=== PATIENT | female | born 1990 | race Caucasian/White ===

== ENCOUNTER 2020-08-10 13:19 | Emergency (ER) | payer OTHER, SELFPAY ==
[2020-08-10 13:21] VITALS: BP 136/83; PULSE 103; RESP 16; TEMP 37.4; O2SAT 98; BMI 21.2
--- NOTE | 2020-08-10 13:43 | HMH.EDGENADL ---
ED Disposition Clinical Impression: Infected dental caries Disposition: Home, Self-Care Condition on Discharge: Fair Instructions: DI for Tooth Abscess Additional Instructions: Clindamycin as prescribed. Gould as needed for pain. Ibuprofen 600 mg every 6-8 hours. Additional instructions for DENTAL PROBLEMS: See a dentist as soon as possible for further evaluation. Return immediately if you have an uncontrollable fever greater than 102 degrees, difficulty breathing or shortness of breath, persistent vomiting, or inability to swallow. Additional instructions for CONTROLLED SUBSTANCES: You have been prescribed a medication that is a controlled substance. Controlled substances include pain medications known as opiates and sedative nerve medications known as benzodiazepines. Tramadol, fioricet, and gabapentin are also controlled substances. Some common opiates include: Codeine (such as Tylenol #3) Hydrocodone (Vicodin, Lortab, Lorcet, Gould) Oxycodone (Percocet, Percodan, Oxycodone, Oxy IR) Some common benzodiazepines include: Diazepam (Valium) Lorazepam (Ativan) Alprazolam (Xanax) Clonazepam (Klonopin) Oxazepam (Serax) All of these controlled substances are highly addictive and frequently abused. Misuse can and frequently does lead to addiction as well as overdose and . Medication should be stored in a locked cabinet or other secure storage unit. Do not store the medication in a motor vehicle. Short term supplies, 3 days or less, are prescribed because of the highly addictive nature of the medication. Any of the controlled substance medication NOT taken should be disposed of properly and NOT SAVED. The recommended method of disposing of unused medications is: Place the medicines in a sealable plastic bag. If the medicine is a solid, crush it or add water to dissolve it. Add something undesirable (cat litter, coffee grounds, etc.) Dispose of sealed bag in household trash Do not flush or pour unused medicines down a sink or drain. Controlled substances should not be shared, given away or sold. Because of the addictive nature and frequent abuse, these medications are sometimes stolen. These medications should be kept in a safe place where they cannot be stolen. Do not keep them in your car or purse. Lost or stolen prescriptions for controlled substances WILL NOT BE REFILLED in this emergency department, regardless of whether a police report was filed. Prescriptions: Hydrocod/Acet 5/325 mg [Gould 5/325mg tablet] 1 tab PO Q6HP PRN #10 tab PRN Reason: Pain Transmission Status: Sent to [facility] #[id number] clindamycin HCL [Clindamycin HCl] 300 mg PO QID #40 cap Transmission Status: Pending to [facility] #[id number] Referrals: PCP,No [Primary Care Provider] - - Critical Care Critical Care Time: No Attestation: On 08/10/20, the high probability of a clinically significant, sudden or life threatening deterioration of the following system(s) required my full and direct attention, intervention and personal management. The time I documented below is in addition to time spent performing reported procedures but includes the following listed in this critical care notation. Medical Decision Making - Maynor Inquiry Pt receiving controlled substance: Yes Maynor was queried for this patient: Yes Risks and benefits of using a controlled substance: were discussed with pt by me Vital Signs: 08/10/20 13:21 Temperature 99.3 F Temperature Source Oral Pulse Rate [Radial] 103 H Respiratory Rate 16 Blood Pressure [Right Arm] 136/83 Blood Pressure Mean [Right Arm] 100 Blood Pressure Position [Right Arm] Sitting 02 Sat by Pulse Oximetry 98 Oxygen Delivery Method Room Air - Lab Data Lab Results 08/10/20 13:57: WBC 11.1 H, RBC 4.81, Hgb 13.2, Hct 42.9, MCV 89.2, MCH 27.4, MCHC 30.8 L, RDW 14.5, Plt Count 374, MPV 7.9, Neut % (Auto) 64.0, Lymph % (Auto) 22.8, [place] % (Auto) 10.6 H,
--- NOTE | 2020-08-10 14:12 | PC.NURSE ---
PT CONTINUES TO C/O PAIN STATES NO RELIEF WITH MEDS GIVEN. PT STATES SHE IS OK TO GET MORPHINE
[2020-08-10 14:39] LABS: Basophils # 0.1 K/mm3 (0-0.2); Basophils % 0.7 % (0.1-2.0); Chloride 101 mmol/L (98-107); Eosinophils # 0.2 K/mm3 (0.0-0.4); Hematocrit 42.9 % (37.0-47.0); Hemoglobin 13.2 g/dL (12.2-16.2); Lymphocytes # 2.5 K/mm3 (0.7-4.5); Lymphocytes % 22.8 % (10-50); Mean Corpuscular HGB Conc 30.8 g/dL (31.8-35.4); Mean Corpuscular Hemoglobin 27.4 pg (27.0-31.2); Mean Corpuscular Volume 89.2 fl (81-99); Mean Platelet Volume 7.9 fl (7.4-10.4); Monocytes # 1.2 K/mm3 (0.1-1.0); Monocytes % 10.6 % (1.7-9.3); Neutrophils # 7.1 K/mm3 (1.8-7.8); Platelet Count 374 K/mm3 (142-424); Potassium 4.5 mmoL/L (3.5-5.1); Red Blood Count 4.81 M/mm3 (4.20-5.40); Red Cell Distribution Width 14.5 % (11.5-17.5); Sodium 140 mmol/L (136-145); White Blood Count 11.1 K/mm3 (4.8-10.8)
[2020-08-10 14:42] LABS: Blood Urea Nitrogen 6 mg/dl (7-17); Creatinine Clearance Estimated 116 mL/min (50-200); Estimated Glomerular Filt Rate 119 ml/min (>60); GFR (African American) 144 ML/MIN (>60)
[2020-08-10 14:43] LABS: Anion Gap 10.5 mEq/L (5-15); Calcium 9.9 mg/dl (8.4-10.2); Carbon Dioxide 33 mmol/L (22.0-30.0); Glucose 111 mg/dl (74-100)
[2020-08-10 15:25] VITALS: BP 124/74; PULSE 65; RESP 16; TEMP 36.8; O2SAT 98
== END 2020-08-10 15:26 | disposition home or self-care (01) ==
PROVIDERS: Emergency Provider Emergency Medicine
DX: K02.9 Dental caries, unspecified (principal); K04.7 Periapical abscess without sinus
CPT/HCPCS: 80048; 85025; 96365; 96375; 99282

== ENCOUNTER → 2020-12-10 15:54 | Outpatient (CLI) | payer OTHER, SELFPAY ==
[2020-12-10 16:43] LABS: Alanine Aminotransferase 101 U/L (12-78); Albumin Level 4.5 g/dl (3.5-5.0); Alkaline Phosphatase 106 U/L (38-126); Aspartate Amino Transferase 56 U/L (14-36); Bilirubin,Direct 0.4 mg/dl (0.0-0.4); Bilirubin,Indirect 0.1 mg/dL (0.0-0.9); Bilirubin,Total 0.5 mg/dl (0.2-1.3); Bilirubin,Unconjugated 0.1 mg/dL (0.0-1.1); Total Protein,Serum 8.3 g/dl (6.3-8.2)
[2020-12-10 16:48] LABS: Basophils % 0.2 % (0.1-2.0); Eosinophils # 0.2 K/mm3 (0.0-0.4); Eosinophils % 1.5 % (0.1-12.0); Hematocrit 40.3 % (37.0-47.0); Hemoglobin 13.3 g/dL (12.2-16.2); Lymphocytes # 2.1 K/mm3 (0.7-4.5); Lymphocytes % 18.4 % (10-50); Mean Corpuscular Hemoglobin 28.5 pg (27.0-31.2); Mean Corpuscular Volume 86.4 fl (81-99); Mean Platelet Volume 7.5 fl (7.4-10.4); Monocytes # 0.7 K/mm3 (0.1-1.0); Monocytes % 5.8 % (1.7-9.3); Neutrophils # 8.6 K/mm3 (1.8-7.8); Neutrophils % 74.1 % (37.0-80.0); Platelet Count 359 K/mm3 (142-424); Red Blood Count 4.66 M/mm3 (4.20-5.40); Red Cell Distribution Width 14.3 % (11.5-17.5); White Blood Count 11.7 K/mm3 (4.8-10.8)
[2020-12-12 06:44] LABS: HIV Screen 4th Generation wRfx Non Reactive (Non Reactive)
[2020-12-12 09:48] LABS: HSV 1 IgG, Type Spec >62.20 index (0.00-0.90); HSV 2 IgG, Type Spec <0.91 index (0.00-0.90); Rubella Antibodies, IgG 1.31 index (Immune >0.99)
[2020-12-12 10:53] LABS: Hepatitis B Surface Antigen Negative (Negative); Hepatitis C Antibody >11.0 s/co ratio (0.0-0.9)
[2020-12-12 12:19] LABS: Rapid Plasma Reagin Ab Titer Non Reactive (NonRea<1:1)
== END ==
PROVIDERS: Visit Provider Nurse Practitioner Obstetrics & Gynecology
DX: Z34.90 Encounter for supervision of normal pregnancy, unspecified, unspecified trimester (principal); B19.20 Unspecified viral hepatitis C without hepatic coma; F19.10 Other psychoactive substance abuse, uncomplicated; O99.320 Drug use complicating pregnancy, unspecified trimester
CPT/HCPCS: 36415; 80076; 85025; 86592; 86695; 86703; 86762; 86790; 86850; 87340; 87380; 87522; 87902; G0432

== ENCOUNTER → 2020-12-18 13:37 | Outpatient (CLI) | payer OTHER, SELFPAY ==
--- NOTE | 2020-12-18 13:42 | US_ITS ---
PROCEDURE: US OB <= 14 WEEKS FETUS CLINICAL INDICATION: US before 14 wk for DATES and confirmation A Aleksandra mcfarland the B at COMPARISON: No exams were available for comparison FINDINGS: An intrauterine gestational sac is present with a pole with a crown-rump length of 3.29cm correlating to gestational age of 10weeks 2days. heart tones are present with an FHR of 167bpm. Yolk sac is noted. Nuchal translucency is slightly prominent at 3 mm. There is also edema of the abdominal wall. These findings are worrisome for abnormality. High risk assessment suggested. IMPRESSION: Live IUP at 10 weeks 2 days. Nuchal translucency is slightly prominent and there is also edema of the abdominal wall. High-risk assessment suggested. Estimated due date by Ultrasound is 07/14/2021 Dictated by: Patrick López MD 12/18/2020 14:54 Patrick López MD in [facility] 12/18/2020 14:54
== END ==
PROVIDERS: Visit Provider Nurse Practitioner Obstetrics & Gynecology
DX: O26.841 Uterine size-date discrepancy, first trimester (principal)
CPT/HCPCS: 76801

== ENCOUNTER → 2021-01-07 15:09 | Outpatient (CLI) | payer OTHER, SELFPAY | PROVIDERS: Visit Provider Nurse Practitioner Obstetrics & Gynecology | DX: Z34.91 Encounter for supervision of normal pregnancy, unspecified, first trimester (principal); Z3A.12 12 weeks gestation of pregnancy | CPT/HCPCS: 36415 ==

== ENCOUNTER → 2021-02-23 13:00 | Outpatient (CLI) | payer OTHER, SELFPAY ==
--- NOTE | 2021-02-23 13:00 | US_ITS ---
PROCEDURE: US OB /MATERNAL DETAIL CLINICAL INDICATION: 20 wk + Anantomy Scan-Complete COMPARISON: US US OB <= 14 WEEKS FETUS from 12/18/2020 FINDINGS: There is a single live intrauterine gestation which is in cephalic presentation. heart and body motion noted. The placenta is anterior in implantation and grade 1. No previa or abruption. The cervix is closed measuring 4 cm. Complete survey performed and was unremarkable on the submitted images as in PACS. No discrete anomalies identified on survey imaging by technologist. Active fetus. Three-vessel cord with satisfactory umbilical cord insertion. 4- chamber heart noted. Survey of brain & ventricles Unremarkable. Face and neck survey unremarkable. Diaphragm and chest views unremarkable. Abdomen: Both kidneys noted and unremarkable. Stomach noted and satisfactory. Spine: Survey of the spine satisfactory with no anomalies identified nor imaged. Both arms and legs noted. Amniotic Fluid: Adequate. Maternal adnexa: No significant findings. Measurements: Average ultrasound age 19weeks 2days. Gestational Age 19weeks 2days Estimated due date by ultrasound age 0207/18/2021. Estimated weight 278g BPD = 19weeks 4days OFD = 19weeks 4days HC = 18weeks 6days AC = 19weeks 1day FL = 19weeks 3days Growth Percentile= 14% Heart Rate = 142bpm Cerebellum = 19weeks 2days Humerus = 19weeks 5days HC/AC is 1.17 CI is 0.8 FL/BPD is 0.67 FL/AC is 0.22 IMPRESSION: Live IUP in cephalic presentation. Average ultrasound age is 19 weeks 2 days. No obvious anomalies. Please see above for detail. Dictated by: Patrick López MD 02/24/2021 09:05 Patrick López MD in [facility] 02/24/2021 09:05
== END ==
PROVIDERS: PCP Nurse Practitioner Obstetrics & Gynecology; Visit Provider Nurse Practitioner Obstetrics & Gynecology
DX: Z36.0 Encounter for antenatal screening for chromosomal anomalies (principal)
CPT/HCPCS: 76811

== ENCOUNTER → 2021-06-08 10:43 | Outpatient (CLI) | payer OTHER, SELFPAY ==
--- NOTE | 2021-06-08 10:44 | US_ITS ---
PROCEDURE: US OB FOLLOW UP CLINICAL INDICATION: SGA TECHNIQUE: FINDINGS: The following parameters are obtained: Average ultrasound age is Average 32weeks 4days Estimated due date by ultrasound is 07/30/2021. Estimated weight is 1,938g. This is 3 percentile. The fetus is in cephalic presentation. The placenta is anterior and grade 2 BPD: 32weeks 5days OFD: 32weeks 5days HC: 29.6cm AC: 28.5cm FL: 6cm heart rate: 116bpm bpm. HC/AC: 1.04 Cephalic index: 0.8 FL/BPD: 0.73 FL/AC: 0.21 Amniotic fluid index: 13.88cm Qualitative AFV: 2 breathing movements: 2 Gross body movements: 2 Tone: 2 Biophysical profile score: 8 IMPRESSION: Live IUP in cephalic presentation with an average ultrasound age of 32 weeks 4 days. Estimated weight is 1938 g which is 3 percentile indicating IUGR. JASE is normal at 14 cm. Biophysical profile is 8 of 8. Dictated by: Patrick López MD 06/08/2021 15:12 Patrick López MD in [facility] 06/08/2021 15:12
== END ==
PROVIDERS: PCP Nurse Practitioner Obstetrics & Gynecology; Visit Provider Nurse Practitioner Obstetrics & Gynecology
DX: O36.5990 Maternal care for other known or suspected poor fetal growth, unspecified trimester, not applicable or unspecified (principal)
CPT/HCPCS: 76816; 76819

== ENCOUNTER → 2021-06-23 16:31 | Outpatient (CLI) | payer OTHER, SELFPAY | PROVIDERS: Visit Provider Nurse Practitioner Obstetrics & Gynecology | DX: Z34.90 Encounter for supervision of normal pregnancy, unspecified, unspecified trimester (principal) | CPT/HCPCS: 86403 ==

== ENCOUNTER 2021-06-27 06:11 | Outpatient (CLI) | payer OTHER, SELFPAY ==
[2021-06-27 06:43] VITALS: BMI 27.6
[2021-06-27 06:50] VITALS: BP 113/58; PULSE 93; RESP 19; TEMP 36.8; O2SAT 97; BMI 27.6
[2021-06-27 07:09] LABS: Microscopic, Urine URINE MICROSCOPIC (MICROSCOPIC)
[2021-06-27 07:11] LABS: Appearance,Urine CLEAR (Clear); Bilirubin,Urine Negative (Negative); Blood, Urine Negative (Negative); Color,Urine YELLOW (Yellow); Glucose,Urine (UA) Negative (Negative); Ketones,Urine Negative (Negative); Leukocyte Esterase,Urine Negative (Negative); Nitrate,Urine Negative (Negative); PH,Urine 6.5 (5.0-8.5); Protein,Urine Negative (Negative); Specific Gravity, Urine <= 1.005 (1.005-1.030); Urobilinogen,Urine 0.2 EU/dl (0.2)
[2021-06-27 07:29] LABS: Bacteria,Urine Trace /lpf
[2021-06-27 07:54] LABS: Benzodiazepines Screen,Urine Negative ng/ml (<200)
[2021-06-27 07:55] LABS: Amphetamine/Metha Screen,Urine Negative ng/ml (<1000); Barbiturates Screen,Urine Negative ng/ml (<200)
[2021-06-27 07:56] LABS: Cannabinoid Screen,Urine Negative ng/ml (<50)
[2021-06-27 07:57] LABS: Cocaine Screen,Urine Negative ng/ml (<300); Methadone Screen,Urine Negative ng/ml (<300)
[2021-06-27 07:58] LABS: Opiate Screen,Urine Negative ng/ml (<300); Phencyclidine Screen,Urine Negative ng/ml (<25)
[2021-06-30 18:54] LABS: Buprenorphine, Urine Negative ng/mL (Cutoff=10)
== END 2021-06-27 07:43 | disposition home or self-care (01) ==
LOC: OBOUT 06:14 → OB 06:14
PROVIDERS: Visit Provider Nurse Practitioner Obstetrics & Gynecology
DX: O60.03 Preterm labor without delivery, third trimester (principal); Z3A.37 37 weeks gestation of pregnancy
CPT/HCPCS: 59025; 80305; 80307; 81001

== ENCOUNTER 2021-07-01 14:02 | Inpatient (IN) | payer OTHER, SELFPAY ==
[2021-07-01] VITALS (8 sets, daily range): BP systolic 107–139; BP diastolic 61–81; PULSE 77–105; RESP 16–18; TEMP 36.4–37.3; O2SAT 95–97; BMI 27.6
[2021-07-01 12:30] LABS: Coronavirus 19, PCR Not Detected (NotDetected); Influenza A, PCR Not Detected (NotDetected); Influenza B, PCR Not Detected (NotDetected)
[2021-07-01 12:30] LABS: Basophils % 0.3 % (0.1-2.0); Eosinophils % 0.1 % (0.1-12.0); Hematocrit 36.3 % (37.0-47.0); Hemoglobin 11.6 g/dL (12.2-16.2); Lymphocytes # 1.1 K/mm3 (0.7-4.5); Lymphocytes % 7.8 % (10-50); Mean Corpuscular Hemoglobin 27.4 pg (27.0-31.2); Mean Corpuscular Volume 85.7 fl (81-99); Mean Platelet Volume 8.1 fl (7.4-10.4); Monocytes # 0.6 K/mm3 (0.1-1.0); Monocytes % 3.8 % (1.7-9.3); Neutrophils # 12.6 K/mm3 (1.8-7.8); Platelet Count 401 K/mm3 (142-424); Red Blood Count 4.24 M/mm3 (4.20-5.40); Red Cell Distribution Width 15.2 % (11.5-17.5); White Blood Count 14.4 K/mm3 (4.8-10.8)
[2021-07-01 13:39] LABS: MANUAL DIFFERENTIAL MANUAL DIFFERENTIAL (MANUAL DIFF)
[2021-07-01 14:02] LABS: Chloride 106 mmol/L (98-107); Potassium 3.9 mmoL/L (3.5-5.1); Sodium 134 mmol/L (136-145)
[2021-07-01 14:04] LABS: Alanine Aminotransferase 27 U/L (12-78); Albumin Level 3.6 g/dl (3.5-5.0); Alkaline Phosphatase 243 U/L (38-126); Aspartate Amino Transferase 29 U/L (14-36); Bilirubin,Total 0.5 mg/dl (0.2-1.3); Blood Urea Nitrogen 5 mg/dl (7-17); Carbon Dioxide 21 mmol/L (22.0-30.0); Creatinine Clearance Estimated 180 mL/min (50-200); Estimated Glomerular Filt Rate 146 ml/min (>60); GFR (African American) 177 ML/MIN (>60); Globulin 3.5 g/dL (1.3-3.2); Total Protein,Serum 7.1 g/dl (6.3-8.2)
[2021-07-01 14:05] LABS: Anion Gap 10.9 mEq/L (5-15); Glucose 98 mg/dl (74-100)
--- NOTE | 2021-07-01 14:06 | HMH.OBAPHP ---
OB - H&P: HPI Antepartum - History of Present Illness Chief complaint: Contractions at 38 weeks. History of present illness: She is a 31-year-old 6 para 4 aborta 1 who was 38+ weeks gestational age. She came in having contractions since this morning. She has had a previous section as well as a . She was scheduled for a repeat section next week. Since she is in active labor and extremely uncomfortable we will go ahead with a repeat section today. She is also known to be small for gestational age and have mild oligohydramnios. We discussed the risks of surgery that includes bleeding, infection, injuries to the bowel and bladder. We discussed the rare risk of DVT. We discussed the need for DVT prophylaxis. All questions were answered and consents were signed. - History of Present Criteria for establishing EDC:: LMP confirmed by 1st trimester US care: limited care Ultrasounds: normal 1st trimester US, normal mid trimester US [facility] History Medical History: Reports:: Hepatitis *Have you ever received a pneumonia vaccine?: No *Have you received a flu vaccine this season?: No Laterality Cases: Bilateral: Tonsillectomy Other Surgeries: Yes: Cholecystectomy, , Tubal Ligation, Other Amputation: No Fractures: No - *Social History Smoking Status: Current every day smoker Tobacco Type: cigarettes Alcohol Intake: never Alcohol Intake Frequency:: other Substance Use Type: heroin, amphetamines, methamphetamine *Occupational Status:: unemployed Housing: other Household Members: other *Travel in the last 8 weeks: None Family Hx:: Cancer, Heart Attack, Diabetes Para: 4 Review of Systems - Review of Systems Review of systems:: pertinent systems reviewed and negative unless documented below Meds Home Medications Medication Instructions Recorded Confirmed Type vits no.126-ferrous fum 1 tab PO DAILY 30 Days #30 tab 12/10/20 06/25/21 Rx 28 mg iron-folic acid 800 mcg tablet ferrous sulfate 325 mg (65 mg 325 mg PO DAILY #30 tab 03/25/21 06/25/21 Rx iron) tablet Allergies Allergy/AdvReac Type Severity Reaction Status Date / Time No Known Allergies Allergy Verified 06/25/21 11:25 OB - H&P: Exam - Physical Exam Vital signs: Temp Pulse Resp BP Pulse Ox 97.6 F 105 H 18 139/78 97 07/01/21 11:30 07/01/21 11:30 07/01/21 11:30 07/01/21 11:30 07/01/21 11:30 - Constitutional no acute distress - Routine HEENT Exam Head: Present: normocephalic Eye: Present: EOMI, PERRL ENT: Present: mucous membranes moist - Routine Neck Exam Present: supple, full ROM - Routine Respiratory Exam Absent: accessory muscle use (good air entry bilaterally), respiratory distress, wheezes, crackles - Routine Cardiovascular Exam Present: RRR. Absent: murmur - Routine Abdominal Exam Present: soft, normoactive bowel sounds. Absent: tenderness, distended, guarding - Routine Rectal Exam Patient deferred: visual exam, digital exam - Routine Exam Patient deferred: external exam, groin exam, perineal exam - Routine Extremities Exam Present: full ROM. Absent: cyanosis, edema - Routine Skin Exam Present: intact. Absent: cyanosis - Routine Neurological Exam Present: alert, oriented X3 - Routine Psychiatric Exam Present: normal affect OB - Results - Labs Labs: Short CBC 07/01/21 Range/Units 12:04 WBC 14.4 H (4.8-10.8) K/mm3 Hgb 11.6 L (12.2-16.2) g/dL Hct 36.3 L (37.0-47.0) % Plt Count 401 (142-424) K/mm3 BMP 07/01/21 12:04 Sodium 134 L Potassium 3.9 Chloride 106 Carbon Dioxide 21 L BUN 5 L Creatinine 0.50 L Glucose 98 Calcium 9.0 Liver Function 07/01/21 Range/Units 12:04 Total Bilirubin 0.5 (0.2-1.3) mg/dl AST 29 (14-36) U/L ALT 27 (12-78) U/L Alkaline Phosphatase 243 H (38-126) U/L Albumin 3.6 (3.5-5.0) g/dl OB - A/P Antepartum (1) Sm
--- NOTE | 2021-07-01 16:22 | HMH.OPNOTE ---
Date of procedure: 07/01/21 Pre-op Diagnosis:: Term , previous section, active labor Post-op Diagnosis:: Term , previous section, active labor Procedure performed:: Repeat lower segment transverse section Surgeon:: Soy Kennedy MD Study Abroad Coordinator(s):: Lavinia Palma LINE MAINTENANCE:: David Gaston Anesthesia: spinal Estimated blood loss (mL): 600 Clinical Note:: She is a 31-year-old 7 para 4 aborta 2 who was 38 weeks gestational age. She came in in active labor. She was scheduled for a next week. As result of that she was offered repeat lower segment transverse section. Operative findings:: She delivered a liveborn male child by section at 330 3 in the afternoon of July 01, 2021. The baby had Apgars of 7 at 1 minute and 9 at 5 minutes. There was thin meconium. Ovaries and tubes appeared normal. Operative note:: She was taken to the operating room where spinal anesthesia was found be adequate. She was prepped and draped in normal sterile fashion in the supine position with a leftward tilt. A Razo catheter was in the bladder. A Pfannenstiel skin incision was made with knife then carried through to the underlying layer of fascia with cautery. The fascia was opened in the midline with cautery and extended laterally using Lopez scissors. Hudson clamps were applied to the superior aspect of the fascial incision which was tented up and the underlying rectus muscles dissected off using cautery. The Gregory clamps were then applied to the inferior aspect of the fascial incision which in a similar fashion was tented up and the underlying rectus muscles dissected off using cautery. The rectus muscles were then in the midline, the peritoneum identified, and entered sharply with Metzenbaum scissors. This incision was then extended superiorly and inferiorly with cautery. We had good visualization of the bladder inferiorly. The bladder peritoneum was then opened in the midline and extended laterally using Metzenbaum scissors. A bladder flap was created digitally. Transverse incision was made through the uterine muscle to the amnion. This incision was then extended laterally using fingers traction. The amnion was entered sharply with knife. There was thin meconium in the amniotic fluid. The 's head was then delivered atraumatically. This was followed by the anterior shoulder and the rest of the infant's body atraumatically. The oropharynx and nasopharynx were DeLee suctioned. The was vigorous and we allowed the cord to continue to pulsate for approximately 1 minute. Then handed off to Dr. Carrasquillo who assigned Apgars of 7 at 1 minute and 9 at 5 minutes. We then obtained cord blood. Using gentle traction on the cord and countertraction on the fundus I was able to easily deliver the placenta intact. It had a normal three-vessel cord. The uterus was then cleared of clots and debris . The uterine incision was then closed using running 0 Vicryl suture in a locked fashion. A second layer of the same suture was used to imbricate the first layer. The bladder peritoneum was then closed using running 2-0 Vicryl suture in a locked fashion. The gutters and cul-de-sac were then cleared of clots and debris . Once again hemostasis was assured. The peritoneum was grasped with Laureen clamps and closed using running 2-0 Vicryl suture. The rectus muscles were then reapproximated using running 0 Vicryl suture. The fascia was closed using running #1 Vicryl suture. The subcutaneous tissues were then irrigated with warm water followed by closure Kelsey's fascia using running 2-0 Monocryl suture. The skin was closed with running subcuticular 4-0 Monocryl strata fix suture. I then cleaned the skin with Hibiclens. Sterile dressings were applied. We then performed a bilateral tap block under ultrasound guidance. She tolerated the procedure well and was taken to the recovery room in [facility]
--- NOTE | 2021-07-01 16:34 | P.PN_ITS ---
[facility] Anesthesia Checklist - Patient Identification Patient Identification: Arm Band - Structural Data Admitted From: Inpatient Planned Operative Procedure/s: Repeat C/s Consent for Planned Operative Procedure(s) Verified: Yes Verified Documents: Surgical Consent, History and Physical - NPO Status Verified Time NPO: 00:00 - Additional verifications Anesthesia Reactions: No - Airway Assessment C-Spine Mobility Assessed: Yes TMJ Mobility Assessed: Yes Dentition: Good Dentition - Neurological Assessment Level of Consciousness: Awake, Alert - Anesthesia Plan Anesthesia Risk discussed: Yes Anesthesia Plan: Verified ASA Class: II Anesthesia Type: Spinal (with Bilateral TAP block) [facility] History I have reviewed the patient's past medical history: Yes Medical History: Reports:: Hepatitis *Have you ever received a pneumonia vaccine?: No *Have you received a flu vaccine this season?: No Anesthesia experience/problems:: nac Laterality Cases: Bilateral: Tonsillectomy Other Surgeries: Yes: Cholecystectomy, , Tubal Ligation, Other Amputation: No Fractures: No - *Social History Smoking Status: Current every day smoker Tobacco Type: cigarettes Alcohol Intake: never Alcohol Intake Frequency:: other Substance Use Type: heroin, amphetamines, methamphetamine *Occupational Status:: unemployed Housing: other Household Members: other *Travel in the last 8 weeks: None Family Hx:: Cancer, Heart Attack, Diabetes Para: 4
--- NOTE | 2021-07-01 16:35 | P.PN_ITS ---
[facility] Anesthesia Record Part I Intake, IV Amount: 2,000 Estimated blood loss (mL): 600 Urine output (mL): 400 Blood Pressure: 124/68 SaO2: 95 Pulse Rate: 88 Respiratory Rate: 16 Temperature: 98.4 F Patient is:: Awake, Stable Stable to PACU at:: 16:20
[2021-07-01 16:51] LABS: Microscopic, Urine URINE MICROSCOPIC (MICROSCOPIC)
[2021-07-01 18:06] LABS: Microscopic,Cath URINE MICROSCOPIC (MICROSCOPIC)
[2021-07-01 19:05] LABS: Appearance,Urine/Cath CLEAR (Clear); Bilirubin,Cath Negative (Negative); Blood, Urine/Cath Negative (Negative); Color,Urine/Cath YELLOW (Yellow); Glucose,Urine/Cath (UA) Negative (Negative); Ketones,Urine/Cath Negative (Negative); Leukocyte Esterase,Cath Negative (Negative); Nitrate,Cath Negative (Negative); PH,Urine/Cath 5.5 (5.0-8.5); Protein,Urine/Cath Negative (Negative); Specific Gravity, Urine/Cath <= 1.005 (1.005-1.030); Urobilinogen,Cath 0.2 EU/dl (0.2)
[2021-07-01 19:08] LABS: Appearance,Urine CLEAR (Clear); Bilirubin,Urine Negative (Negative); Blood, Urine Negative (Negative); Color,Urine YELLOW (Yellow); Glucose,Urine (UA) Negative (Negative); Ketones,Urine Negative (Negative); Leukocyte Esterase,Urine Negative (Negative); Nitrate,Urine Negative (Negative); PH,Urine 6.5 (5.0-8.5); Protein,Urine Negative (Negative); Urobilinogen,Urine 0.2 EU/dl (0.2)
[2021-07-01 19:22] LABS: Bacteria,Urine Trace /lpf; RBC,Urine Occasional #/hpf (0-3); Squamous Epithelial Cell,Urine Occasional #/hpf (0-5)
[2021-07-01 19:23] LABS: Bacteria,Urine/Cath TRACE /lpf
[2021-07-01 19:24] LABS: Amphetamine/Metha Screen,Urine Negative ng/ml (<1000)
[2021-07-01 19:25] LABS: Barbiturates Screen,Urine Negative ng/ml (<200); Benzodiazepines Screen,Urine Negative ng/ml (<200)
[2021-07-01 19:26] LABS: Cannabinoid Screen,Urine Negative ng/ml (<50)
[2021-07-01 19:27] LABS: Cocaine Screen,Urine Negative ng/ml (<300); Methadone Screen,Urine Negative ng/ml (<300)
[2021-07-01 19:28] LABS: Opiate Screen,Urine Negative ng/ml (<300)
[2021-07-01 19:29] LABS: Phencyclidine Screen,Urine Negative ng/ml (<25)
[2021-07-01 19:56] LABS: Lymphocytes % 10 % (10-50); Monocytes % 3 % (2-9); Neutrophils % 87 % (42-76); Platelet Estimate Normal; Total Cells Counted 100
[2021-07-01 19:57] LABS: Spherocytes 1+
[2021-07-02 03:29] VITALS: BP 111/62; PULSE 71; RESP 17; TEMP 37; O2SAT 99
[2021-07-02 07:57] LABS: Hematocrit 31.5 % (37.0-47.0)
[2021-07-02 08:05] VITALS: BP 115/67; PULSE 81; TEMP 36.6
--- NOTE | 2021-07-02 08:05 | P.PN_ITS ---
[facility] Anesthesia Record Part II Discharge Time: 16:50 Destination: Obstetric PACU nurse assessment reviewed?: Yes Patient Condition:: Good Anesthesia Complications:: None Swallowing reflex intact?: Yes Cyanosis?: No Blood Pressure: 115/67 Pulse Rate: 81 Temperature: 98 F Mental Status: Alert & Oriented Pain level:: 0 Nausea and/or vomitting:: None Intake, IV Amount: 0
--- NOTE | 2021-07-02 08:35 | HMH.OBDCSM ---
General - General Admission date:: 07/01/21 Discharge date: 07/02/21 HPI - History of Present Illness History of present illness: She is a 31-year-old 7 para 4 aborta 2 who was 38+ weeks gestational age. She was scheduled for a repeat next week. She came in in active labor and as result of that we took her for a repeat lower segment transverse section. She also admits to recently using IV heroin. She has hepatitis C. She had been taking Subutex and stopped taking this. Hospital Course Hospital Course: She underwent a repeat lower segment transverse section and delivered a liveborn male child at 3:33 PM in the afternoon of July 01, 2021. Baby had Apgars of 7 at 1 minute and 9 at 5 minutes. He weighed 6 pounds 1 ounces. He was 17-1/4 inches long. The baby had some breathing difficulty and it did have meconium at the time of its delivery. The baby has been transferred to . Patient would like to be discharged today. She says she wants to go to rehab. Blood counts are normal. She has a positive blood, she is rubella immune and was group B streptococcus negative. She will be discharged home to follow-up with me in approximately 2 weeks time. She was given a prescription for Percocet 5/325 number 12 tablets. She was given the usual instructions with respect to limiting her activity, driving and sexual activity. She was given instructions with respect to wound care. Her condition on discharge is stable and improved. Rhogam Administration: Not Indicated Objective Vital signs: Temp Pulse Resp BP Pulse Ox 98 F 81 17 115/67 99 07/02/21 08:05 07/02/21 08:05 07/02/21 03:29 07/02/21 08:05 07/02/21 03:29 no acute distress - *Routine HEENT Exam Head: Present: normocephalic Eye: Present: EOMI, PERRL ENT: Present: mucous membranes moist Results Labs on day of discharge: Labs from last 24 hours 07/02/21 07/01/21 07/01/21 07:01 15:15 14:00 WBC RBC Hgb 10.0 L D Hct 31.5 L MCV MCH MCHC RDW Plt Count MPV Neut % (Auto) Lymph % (Auto) [place] % (Auto) Eos % (Auto) Baso % (Auto) Neut # (Auto) Lymph # (Auto) [place] # (Auto) Eos # (Auto) Baso # (Auto) Total Counted Neutrophils % (Manual) Lymphocytes % (Manual) Monocytes % (Manual) Platelet Estimate Spherocytes Sodium Potassium Chloride Carbon Dioxide Anion Gap BUN Creatinine Estimated Creat Clear Estimated GFR Est GFR ( Amer) Glucose Calcium Total Bilirubin AST ALT Alkaline Phosphatase Total Protein Albumin Globulin Albumin/Globulin Ratio Urine Color Yellow Urine Appearance Clear Urine pH 5.5 Ur Specific [place] <= 1.005 Urine Protein Negative Urine Glucose (UA) Negative Urine Ketones Negative Urine Blood Negative Urine Nitrate Negative Urine Bilirubin Negative Urine Urobilinogen 0.2 Ur Leukocyte Esterase Negative Urine RBC None Urine WBC 3-5 Ur Squamous Epith Cells 3-5 Urine Bacteria Trace Urine Opiates Screen Negative Urine Methadone Screen Negative Ur Barbituates Screen Negative Ur Phencyclidine Scrn Negative Ur Amphetamines Screen Negative U Benzodiazepines Scrn Negative Urine Cocaine Screen Negative U Marijuana (THC) Screen Negative SARS-CoV-2 (PCR) Influenza A Untype (PCR) Influenza Type B (PCR) Blood Type Antibody Screen 07/01/21 07/01/21 07/01/21 14:00 12:08 12:04 WBC RBC Hgb Hct MCV MCH MCHC RDW Plt Count MPV Neut % (Auto) Lymph % (Auto) [place] % (Auto) Eos % (Auto) Baso % (Auto) Neut # (Auto) Lymph # (Auto) [place] # (Auto) Eos # (Auto) Baso # (Auto) Total Counted Neutrophils % (Manual) Lymphocytes % (Manual) Monocytes % (Manual) Platelet Estim
--- NOTE | 2021-07-02 10:28 | SW/DCPLANNER ---
Addendum entered by Mari Solano 07/13/21 11:04: CALLED [facility]ENTRAL INTAKE WITH CORD RESULTS.. INFANTS CORD SCREEN WAS POSITIVE FOR FENTANYL, GABAPENTIN.. INFORMED THEM OF THIS ON THE ID # [id number]. Original Note: RECEIVED REFERRAL FOR THIS PATIENT STATING DRUG USE IN ... PATIENT PRESENTED INTO THE HOSPITAL YESTERDAY FOR A . PATIENT STATED TO NURSING STAFF SHE HAD USED HEROIN 2 DAYS BEFORE PATIENT CAME IN FOR DELIVERY.. INFANT WAS TRANSFERRED TO FOR RESPIRATORY DISTRESS. THE TIMEKEEPER SUPERVISOR CALLED THIS MORNING AT AND WANTED TO KNOW IF IT WAS REPORTED. I DID CALL HER BACK AND GAVE HER THE ID# [id number] AND SOME ADDITIONAL INFORMATION THAT MOM WAS POSITIVE FOR METH ON 12/10/21 AND THC 06/03/21...PATIENT LEFT HOSPITAL THIS MORNING AND SHE STATED TO STAFF SHE WAS GOING TO REHAB.. WHEN I CALLED MOM HAS NOT SHOWN UP THERE YET.. TIMEKEEPER SUPERVISOR WILL BE KEEPING IN TOUCH WITH THE CABINET ON THE CONDITION OF THE CHILD..
[2021-07-04 14:10] LABS: Buprenorphine, Urine Negative ng/mL (Cutoff=10)
== END 2021-07-02 09:30 | disposition home or self-care (01) | DRG 787 ==
LOC: OBOUT 14:03 → OB 14:03
PROVIDERS: Admitting Provider Nurse Practitioner Obstetrics & Gynecology; Visit Provider Nurse Practitioner Obstetrics & Gynecology
PROC: 10D00Z1 Extraction of Products of Conception, Low, Open Approach (ICD-10-PCS; CPT 59514; principal; 2021-07-01 14:45)
DX: O41.03X0 Oligohydramnios, third trimester, not applicable or unspecified (principal); O99.334 Smoking (tobacco) complicating childbirth; Z3A.38 38 weeks gestation of pregnancy; O34.211 Maternal care for low transverse scar from previous cesarean delivery; Z37.0 Single live birth; N85.8 Other specified noninflammatory disorders of uterus; O75.82 Onset (spontaneous) of labor after 37 completed weeks of gestation but before 39 completed weeks gestation, with delivery by (planned) cesarean section; O36.5930 Maternal care for other known or suspected poor fetal growth, third trimester, not applicable or unspecified; F17.210 Nicotine dependence, cigarettes, uncomplicated
CPT/HCPCS: 59514; 36415; 59025; 80053; 80305; 80307; 81001; 85007; 85014; 85018; 85025; 86850; 94761; C9290; C9803; G0283; J2405; U0003; U0005